=== PATIENT | male | born 1965 ===

== ENCOUNTER 2021-07-15 17:26 | Emergency (ER) | payer SELFPAY ==
[~2021-07-15] VITALS: Ht 167.6 cm; Wt 102.3 kg
[2021-07-15 17:35] VITALS: BP 155/109
== END 2021-07-16 00:27 | disposition left against medical advice (07) ==
LOC: ER 17:28
DX: M79.601 Pain in right arm (principal); Z53.21 Procedure and treatment not carried out due to patient leaving prior to being seen by health care provider